=== PATIENT | female | born 2000 | race Two or more races ===

== ENCOUNTER 2019-04-22 14:51 | Emergency (ER) | payer BC, OTHER ==
[~2019-04-22] VITALS: Ht 175.3 cm; Wt 63.0 kg
[2019-04-22 14:54] VITALS: BP 125/71
[2019-04-22] MEDS ORDERED: penicillin G benzathine 1.2 million unit/2ml syringe IM ONE (16:05)
[2019-04-22] MEDS ORDERED: IBUP-1984 PO (16:05)
== END 2019-04-22 16:37 | disposition home or self-care (01) ==
LOC: ER 14:53
DX: J02.0 Streptococcal pharyngitis (principal)
CPT/HCPCS: 87081; 87880; 96372; 99283; J0561